=== PATIENT | female | born 1970 | race African-American/Black ===

== ENCOUNTER 2019-09-08 11:33 | Emergency (ER) | payer OTHER ==
[~2019-09-08] VITALS: Ht 165.1 cm; Wt 95.3 kg
[2019-09-08 12:09] LABS: Basophils # (auto) 0.1 uL; Basophils % (auto) 0.9 % (0.0-2.0); Eosinophils # (auto) 0.1 uL; Eosinophils % (auto) 0.5 % (0.0-7.0); Hematocrit 38.5 % (36.0-46.0); Lymphocytes # (auto) 1.6 uL; Lymphocytes % (auto) 15.7 % (10.0-50.0); Mean Corpuscular Hgb Conc. 33.8 g/dL (32.0-36.0); Mean Corpuscular Volume 94.6 fL (80.0-100.0); Monocytes # (auto) 0.4 uL; Monocytes % (auto) 4.3 % (0.0-12.0); Neutrophils % (auto) 78.6 % (37.0-80.0); Nucleated Red Blood Cells % 0.1 %; Platelet Count (auto) 294 10^3/uL (140-450); Red Blood Cells 4.07 10^6/uL (4.0-5.20); Red Cell Distribution Width 12.3 % (11.8-14.3); White Blood Cell 10.2 10^3/uL (4.4-10.8)
[2019-09-08 12:31] LABS: Albumin 3.8 g/dL (3.4-5.0); Anion Gap 6 (5-15); Blood Urea Nitrogen 10 mg/dL (7-18); Calcium 8.7 mg/dL (8.5-10.1); Carbon Dioxide 25 mmol/L (21-32); Chloride 109 mmol/L (98-107); Glucose 100 mg/dL (74-106); Potassium 3.9 mmol/L (3.5-5.1); Sodium 140 mmol/L (136-145)
[2019-09-08 12:34] LABS: INR 1.01 (0.9-1.15); Partial Thromboplastin Time 23.4 sec (23.64-32.05)
[2019-09-08 12:37] LABS: Alanine Aminotransferase 20 U/L (13-56); Alkaline Phosphatase 39 U/L (45-117); Aspartate Aminotransferase 13 U/L (15-37); BUN/Creatinine Ratio 15.6; Bilirubin, Total 0.7 mg/dL (0.2-1.0); GFR African American 126 mL/min; GFR Non-African American 104 mL/min
[2019-09-08 13:50] VITALS: BP 154/83
[2019-09-08] MEDS ORDERED: MECLIZINE HCL 25 MG TAB PO ONE (14:15)
[2019-09-08 14:39] LABS: Urine Bacteria NONE SEEN /hpf (None Seen); Urine Blood Negative /uL (Negative); Urine Specific Gravity 1.014 (1.001-1.035); Urine WBC 1 /hpf (0 - 5)
[2019-09-08 14:55] LABS: Amphetamine Screen, Urine NEGATIVE (NEGATIVE); Barbiturate Scree,Urine NEGATIVE (NEGATIVE); Benzodiazephine Screen, Urine NEGATIVE (NEGATIVE); Cannabinoid Screen, Urine NEGATIVE (NEGATIVE); Cocaine Screen, Urine NEGATIVE (NEGATIVE); Phencyclidine Screen, Urine NEGATIVE (NEGATIVE)
[2019-09-08 14:57] LABS: Alcohol, Urine < 3.0 mg/dL (0-5); Opiate Scree,Urine NEGATIVE (NEGATIVE)
== END 2019-09-08 16:33 | disposition home or self-care (01) ==
LOC: ER 11:33 → EDBD 11:33 → ER 15:16
DX: R42 Dizziness and giddiness (principal); R11.2 Nausea with vomiting, unspecified
CPT/HCPCS: 36415; 70450; 71045; 80053; 80307; 81001; 81025; 83880; 84484; 85025; 85379; 85610; 85730; 99284; J8597; 93005

== ENCOUNTER 2021-07-28 21:00 | Emergency (ER) | payer OTHER ==
[~2021-07-28] VITALS: Ht 170.2 cm; Wt 112.0 kg
[2021-07-28 21:15] VITALS: BP 175/87
== END 2021-07-29 01:04 | disposition left against medical advice (07) ==
LOC: ER 21:03
DX: R10.2 Pelvic and perineal pain (principal); Z53.21 Procedure and treatment not carried out due to patient leaving prior to being seen by health care provider

== ENCOUNTER 2025-03-13 06:25 | Inpatient (IN) | payer OTHER ==
[~2025-03-13] VITALS: Ht 170.2 cm; Wt 121.7 kg
[~2025-03-13 06:25] MED LIST: AMLO1TAB23 PO; ASPI1TAB20 PO; ATOR-507 PO
--- NOTE | 2025-03-13 06:53 | ED.PDOC ---
HPI Comments 54 y/o F, with PMHx of HTN presents to the ED for CC of chest pain. 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 Patient reports, that she was at work when chest pain came on suddenly; patient reports sitting down to try and relieve symptoms with no affect. Upon arrival to the ED, patient is tachycardiac with a HR of 180bpm. Patient transferred to ER bed 8 for further care. Chief Complaint: Chest Pain Time Seen by MD: 06:48 Primary Care Provider: EDIE Reviewed Notes: Nurses Notes, Medications, Allergies Allergies: Coded Allergies: NO KNOWN ALLERGIES (Unverified , 09/08/19) Home Meds Active Scripts Amlodipine Besylate (Amlodipine Besylate) 10 Mg Tab, 1 TAB PO DAILY, #90 TAB 1 Refill Prov:FAMILIA PETTY MD 02/27/22 Aspirin (Aspir-81) 81 Mg Tab, 1 TAB PO DAILY, #90 TAB 1 Refill Prov:FAMILIA PETTY MD 02/27/22 Atorvastatin Calcium (Lipitor) 40 Mg Tab, 1 TAB PO QPM, #90 TAB 1 Refill Prov:FAMILIA PETTY MD 02/27/22 Information Source: Patient Mode of Arrival: Ambulatory Severity: Moderate Timing: Hours Duration: Since onset Prehospital treatment: None Location: Substernal Radiation: No Radiation Onset: At Rest Cardiac Risk Factors: HTN PE Risk Factors: None History of: None Modifying Factors: Nothing Associated Signs and Symptoms: SOB Past Medical History PAST MEDICAL HISTORY: HTN Surgical History: BTL OFFICE RN History: No Pertinent OFFICE RN History Family History Family History: No family hx of Heart gera Social History Smoker: Non-Smoker Alcohol: Occasionally Drugs: Denies Drug Use Lives In: Home Constitutional: denies: chills, diaphoresis, fatigue, fever, malaise, sweats, weakness, others EENTM: denies: blurred vision, double vision, ear bleeding, ear discharge, ear drainage, ear pain, ear ringing, eye pain, eye redness, hearing loss, mouth pain, mouth swelling, nasal discharge, nose bleeding, nose congestion, nose pain, photophobia, tearing, throat pain, throat swelling, voice changes, others Respiratory: reports: shortness of breath; denies: cough, hemoptysis, orthopnea, SOB at rest, SOB with excertion, stridor, wheezing, others Cardiovascular: reports: chest pain, palpitations; denies: dizzy spells, diaph oresis, Dyspnea on exertion, edema, irregular heart beat, left arm pain, lightheadedness, PND, syncope, others Gastrointestinal: denies: abdomen distended, abdominal pain, blood streaked bowels, constipated, diarrhea, dysphagia, difficulty swallowing, hematemesis, melena, nausea, poor appetite, poor fluid intake, rectal bleeding, rectal pain, vomiting, others Genitourinary: denies: abnormal vagina bleeding, burning, dyspareunia, dysuria, flank pain, frequency, hematuria, incontinence, pain, , vagina discharge, urgency, others Neurological: reports: headache; denies: dizziness, fainting, left sided numbness, left sided weakness, numbness, paresthesia, pre-existing deficit, right sided numbness, right sided weakness, seizure, speech problems, tingling, tremors, weakness, others Musculoskeletal: denies: back pain, gout, joint pain, joint swelling, muscle pain, muscle stiffness, neck pain, others Integumetry: denies: bruises, change in color, change in hair/nails, dryness, laceration, lesions, lumps, rash, wounds, others Allergic/Immunocompromised: denies: Difficulty Healing, Frequent Infections, Hives, Itching, others Hematologic/Lymphatic: denies: anemia, blood clots, easy bleeding, easy bruising, swollen glands, others Endocrine: denies: excessive hunger, excessive sweating, excessive thirst, excessive urination, flushing, intolerance to cold, intolerance to heat, unexplained weight gain, unexplained weight loss, others Psychiatric: denies: anxiety, bipolar disorder, depression, hopeless, panic disorder, schizophrenia, sleepless, suicidal, others All Other Systems: Reviewed and Negative Physical Exam General Appearance: Moderate Distress HEENT: Normal ENT Inspection, Pharynx Normal, TMs Normal Neck: Full Range of Motion, Non-Tender, Normal, Normal Inspection Respiratory: Chest Non-Tender, Lungs Clear, No Accessory Muscle Use, No Respiratory Distress, Normal Breath Sounds Cardiovascular: Tachycardia Breast Exam: Deferred Gastrointestinal: No Organomegaly, Non Tender, No Pulsatile Mass, Normal Bowel Sounds, Soft Genitalia: Deferred Pelvic: Deferred Rectal: Deferred Extremities: No calf tenderness, Normal capillary refill, Normal inspection, Normal range of motion, Non-tender, No pedal edema Musculoskeletal : Apperance: Normal Neurologic: Alert, pipe finisher II-XII nml as Tested, No Motor Deficits, Normal Affect, Normal Mood, No Sensory Deficits Cerebellar Function: NOT DONE Reflexes: NOT DONE Skin: Dry, Normal Color, Warm Peripheral Pulses: 3+ Radial (R), 3+ Radial (L) Lymphatic: No Adenopathy EKG EKG : Pulse Rate (adult): 175 Cardiac Rhythm: PSVT Was a procedure done? Was a procedure done?: No CP Differential Dx Differential Diagnosis: A-fib, A-Flutter, Angina, Anxiety / Panic Attack, Atrial Dysrhythmia, Electrolyte Disorder, Sinus Tachycardia Differential Diagnosis: HTN Essential, HTN Accelerated X-Ray, Labs, Meds, VS Vital Signs Date Time Temp Pulse Resp B/P (MAP) Pulse Ox O2 Delivery O2 Flow Rate FiO2 03/13/25 08:00 69 03/13/25 07:30 80 03/13/25 07:14 175 03/13/25 07:06 80 16 125/92 (103) 95 03/13/25 07:06 80 16 95 Room Air* 0 21 03/13/25 07:02 86 03/13/25 06:30 97.9 179 20 141/102 (115) 98 97.9 03/13/25 06:29 175 Lab Test 03/13/25 07:55 03/13/25 06:52 Range/Units Troponin I High Sensitivity 13 6 </=34 ng/L White Blood Count 12.6 H 4.4-10.8 10^3/uL Red Blood Count 4.42 4.0-5.20 10^6/uL Hemoglobin 13.6 12.2-16.2 g/dL Hematocrit 40.6 36.0-46.0 % Mean Corpuscular Volume 91.8 80.0-100.0 fL Mean Corpuscular Hemoglobin 30.8 28.0-32.0 pg Mean Corpuscular Hemoglobin Concent 33.5 32.0-36.0 g/dL Red Cell Distribution Width 12.5 11.8-14.3 % Platelet Count 419 140-450 10^3/uL Mean Platelet Volume 8.3 6.9-10.8 fL Neutrophils (%) (Auto) 60.3 37.0-80.0 % Lymphocytes (%) (Auto) 30.4 10.0-50.0 % Monocytes (%) (Auto) 5.8 0.0-12.0 % Eosinophils (%) (Auto) 2.6 0.0-7.0 % Basophils (%) (Auto) 0.9 0.0-2.0 % Neutrophils # (Auto) 7.6 1.6-8.6 10 ^3/uL Lymphocytes # (Auto) 3.8 0.4-5.4 10 ^3/uL Monocytes # (Auto) 0.7 0-1.3 10 ^3/uL Eosinophils # (Auto) 0.3 0-0.8 10 ^3/uL Basophils # (Auto) 0.1 0-0.2 10 ^3/uL Nucleated Red Blood Cells 0.1 % Sodium Level 143 136-145 mmol/L Potassium Level 3.8 3.5-5.1 mmol/L Chloride Level 109 H 98-107 mmol/L Carbon Dioxide Level 21 20-31 mmol/L Anion Gap 13 5-15 Blood Urea Nitrogen 12 9-23 mg/dL Creatinine 0.72 0.550-1.02 mg/dL Glomerular Filtration Rate Calc 98 >90 mL/min BUN/Creatinine Ratio 16.7 10.0-20.0 Serum Glucose 123 H 74-106 mg/dL Calcium Level 10.2 8.7-10.4 mg/dL Current Medications Medications (Trade) Dose Ordered Sig/Stephen Route Start Time Stop Time Status Last Admin Adenosine (Adenosine) 6 mg ONCE ONCE IV 03/13/25 06:45 03/13/25 06:46 DC 03/13/25 07:00 [place] [id number] Ph: [phone] DIAGNOSTIC IMAGING Diagnostic Imaging Report : [id number] Signed PATIENT: JULI SANDOVAL ACCT: [id number] UNIT: [id number] : 1970 LOC: ER ROOM / BED: / AGE / SEX: 54 / F ADM STATUS: REG ER SERVICE 07 ORDERING PHYSICIAN: TRACY RIVAS MD PROCEDURE(s): CXRP - CHEST PORTABLE REASON: sob ORDER NUMBER(s): [id number], ACCESSION NUMBER(s): [id number] EXAM: XR Chest, 1 View CLINICAL INDICATION: sob TECHNIQUE: Frontal view of the chest. COMPARISON: CHEST PORTABLE on DOS: 02/25/22, CXRP on DOS: 02/25/22 FINDINGS: LUNGS AND PLEURAL SPACES: Unremarkable. No consolidation. No pneumothorax. HEART: Unremarkable. No cardiomegaly. MEDIASTINUM: Unremarkable. Normal mediastinal contour. BONES/JOINTS: Unremarkable. No acute fracture. OTHER FINDINGS: . IMPRESSION: No acute cardiopulmonary process. ATED BY: DONNA CROOK MD DICTATED DATE/TIME: 03/13/25803 SIGNED BY: DONNA CROOK MD SIGNED DATE/TIME: 03/13/25803 CC: Patient alert. Came in because of chest palpitations. EKG does show supraventricular tachycardia. Was given adenosine. Rhythm kind of radiated to sinus. Possibly will need amiodarone. New onset supraventricular tachycardia. Explained to the patient that she will be admitted for continuing monitoring of her cardiac rhythm. Cardiology consultation. Continue monitor. [facility] approved inpatient admission [id number]. Time of 1ST Reevaluation: 07:18 Reevaluation 1ST: Unchanged Patient Education/Counseling: Diagnosis, Treatment Family Education/Counseling: No Family Present Departure 1 Departure Time of Disposition: 07:13 Impression: Primary Impression: Supraventricular tachycardia Disposition: ADMITTED INPATIENT Admit to: Med Surg Condition: Guarded Critical Care Note Critical Care Time?: Yes (90 min-critical care time only) Critical care comment: Supraventricular tachycardia Stability Stability form required: No Heart Score Heart Score: Heart Score Response (Comments) Value History Slightly Suspicious 0 EKG Normal 0 Age 45-64 1 Risk Factors >3 or Hx ASHD 2 Troponin N/A 0 Total 3 I personally scribed for TRACY RIVAS MD ([email or web address]) on 03/13/25 at 06:53. Electronically submitted by Joselin Gray ([email or web address]). I personally scribed for TRACY RIVAS MD ([email or web address]) on 03/13/25 at 08:32. Electronically submitted by Joselin Gray ([email or web address]). TRACY RIVAS MD March 13, 2025 06:53
[2025-03-13] MEDS: ADENOSINE 6 MG/2 ML INJ IV ONE (07:00)
--- NOTE | 2025-03-13 07:00 | ECG ---
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
[2025-03-13 07:06] VITALS: PULSE 80; RESP 16; O2SAT 95
--- NOTE | 2025-03-13 07:10 | ECG ---
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
[2025-03-13 07:12] LABS: Basophils # (auto) 0.1 10 ^3/uL (0-0.2); Basophils % (auto) 0.9 % (0.0-2.0); Eosinophils # (auto) 0.3 10 ^3/uL (0-0.8); Eosinophils % (auto) 2.6 % (0.0-7.0); Hematocrit 40.6 % (36.0-46.0); Hemoglobin 13.6 g/dL (12.2-16.2); Lymphocytes # (auto) 3.8 10 ^3/uL (0.4-5.4); Lymphocytes % (auto) 30.4 % (10.0-50.0); Mean Corpuscular Hemoglobin 30.8 pg (28.0-32.0); Mean Corpuscular Hgb Conc. 33.5 g/dL (32.0-36.0); Mean Corpuscular Volume 91.8 fL (80.0-100.0); Monocytes # (auto) 0.7 10 ^3/uL (0-1.3); Monocytes % (auto) 5.8 % (0.0-12.0); Neutrophils # (auto) 7.6 10 ^3/uL (1.6-8.6); Neutrophils % (auto) 60.3 % (37.0-80.0); Nucleated Red Blood Cells % 0.1 %; Platelet Count (auto) 419 10^3/uL (140-450); Red Blood Cells 4.42 10^6/uL (4.0-5.20); Red Cell Distribution Width 12.5 % (11.8-14.3); White Blood Cell 12.6 10^3/uL (4.4-10.8)
[2025-03-13 07:14] LABS: Potassium 3.8 mmol/L (3.5-5.1); Sodium 143 mmol/L (136-145)
[2025-03-13 07:15] LABS: Anion Gap 13 (5-15); Calcium 10.2 mg/dL (8.7-10.4); Carbon Dioxide 21 mmol/L (20-31)
[2025-03-13 07:16] LABS: Chloride 109 mmol/L (98-107)
[2025-03-13 07:20] LABS: BUN/Creatinine Ratio 16.7 (10.0-20.0); Blood Urea Nitrogen 12 mg/dL (9-23); Glucose 123 mg/dL (74-106)
[2025-03-13 07:30] VITALS: RESP 16; O2SAT 95
--- NOTE | 2025-03-13 08:07 | DVH ---
EXAM: XR Chest, 1 View CLINICAL INDICATION: sob TECHNIQUE: Frontal view of the chest. COMPARISON: CHEST PORTABLE on DOS: 02/25/22, CXRP on DOS: 02/25/22 FINDINGS: LUNGS AND PLEURAL SPACES: Unremarkable. No consolidation. No pneumothorax. HEART: Unremarkable. No cardiomegaly. MEDIASTINUM: Unremarkable. Normal mediastinal contour. BONES/JOINTS: Unremarkable. No acute fracture. OTHER FINDINGS: . IMPRESSION: No acute cardiopulmonary process.
[2025-03-13] MEDS: AMIODARONE 360mg/200mL PREMIX 200 ML IV ONE (09:06)
[2025-03-13] MEDS: AMIODARONE BOLUS KIT 100 ML IV ONE (09:06)
[2025-03-13 09:14] LABS: Urine Bacteria None Seen /hpf (None Seen)
[2025-03-13 09:27] LABS: Urine Blood Negative /uL (Negative); Urine Clarity Clear (Clear); Urine Color Light-Yellow (Yellow); Urine Mucus FEW (None Seen); Urine Protein, UAD TRACE (Negative); Urine Specific Gravity 1.017 (1.001-1.035); Urine Squamous Epithelial Cell FEW /hpf (<5); Urine Urobilinogen Normal (Negative); Urine WBC 1 /HPF (0-5); Urine pH 6.5 (5.0-9.0)
[2025-03-13] MEDS ORDERED: HYDROcodone-ACET 5/325MG TAB PO PRN (09:45)
[2025-03-13] MEDS ORDERED: MORPHINE SULFATE INJ 2 MG/ml SYRG IV PRN ×2 (09:45)
[2025-03-13] MEDS ORDERED: DOCUSATE SOD 100 MG CAP PO PRN (09:45)
[2025-03-13] MEDS ORDERED: ACETAMINOPHEN 325 MG TAB PO PRN (09:45)
[2025-03-13] MEDS ORDERED: NITROGLYCERIN 0.4 MG SL TAB SL PRN (09:45)
[2025-03-13] MEDS ORDERED: ONDANSETRON HCL 4 MG/2 ML VIAL IV PRN (09:45)
--- NOTE | 2025-03-13 09:50 | ECG ---
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
--- NOTE | 2025-03-13 10:29 | DVHHP2 ---
History of Present Illness Reason for Visit: Chest pain History of Present Illness Ca Khan is a 54-year-old female with past medical history of hypertension, and hyperlipidemia who came to the hospital for chest pain. Patient works for [employer]. She was at work about 0500 when she began feeling chest pain and palpitations. She rested her head on her desk. She dozed off, and then woke up in a panic with the chest pain and palpitations. She then chose to drive her self to the hospital. On arrival it was noted that she was in SVT with a heart rate in the 170's. She was given a dose of adenosine and heart rate improved. On assessment heart rate is SR in the 70-80's, she has no complaints at this time. States chest pain and palpitations have improved. Patient takes Metformin at home. She states she is not diabetic and that she was started on it 1 month ago for weight lose. Cardiovascular: HTN, hyperipidemia Past Surgical History: Other (right foot) Smoke: No ALCOHOL: rare Drugs: None Lives: with Family Domestic Violence: Neg Review of Systems Constitutional: No: Fever, Chills, Sweats, Weakness, Malaise, Other Eyes: No: Pain, Vision change, Conjunctivae inflammation, Eyelid inflammation, Other, Redness ENT: No: Ear pain, Ear discharge, Nose pain, Nose discharge, Nose congestion, Mouth pain, Mouth swelling, Throat pain, Throat swelling, Other Respiratory: No: Cough, Dry, Shortness of breath, SOB with excertion, Wheezing, Hemoptysis, Pleuritic Pain, Sputum, Wheezing, Other Cardiovascular: Chest Pain, Palpitations; No: Orthopnea, Paroxysmal Noc. Dyspnea, Edema, Lt Headedness, Other Gastrointestinal: No: Nausea, Vomiting, Abdominal Pain, Diarrhea, Constipation, Melena, Hematochezia, Other Genitourinary: No Dysuria, No Frequency, No Incontinence, No Hematuria, No Retention, No Other Musculoskeletal: No: other, neck pain, shoulder pain, arm pain, back pain, hand pain, leg pain, foot pain Skin: No: Rash, Lesions, Jaundice, Bruising, Other Neurological: No: Weakness, Numbness, Incoordination, Change in speech, Confusion, Seizures, Other Allergies: Coded Allergies: NO KNOWN ALLERGIES (Unverified , 09/08/19) Medications Current Medications Medications Dose Ordered Sig/Stephen Route Start Time Stop Time Status Last Admin Dose Admin Acetaminophen/ Hydrocodone Bitart 1 tab Q4HP PRN PO 03/13/25 09:45 Ondansetron HCl 4 mg Q4HP PRN IV 03/13/25 09:45 Docusate Sodium 100 mg BIDPRN PRN PO 03/13/25 09:45 Acetaminophen 650 mg Q6HP PRN PO 03/13/25 09:45 Morphine Sulfate 2 mg Q4HPRN PRN IV 03/13/25 09:45 Nitroglycerin 0.4 mg Q5MINP PRN SL 03/13/25 09:45 Morphine Sulfate 2 mg Q30M PRN IV 03/13/25 09:45 Exam Vital Signs Vital Signs Date Time Temp Pulse Resp B/P (MAP) Pulse Ox O2 Delivery O2 Flow Rate FiO2 03/13/25 09:48 79 03/13/25 09:32 Room Air* 0 21 03/13/25 07:30 16 95 03/13/25 07:06 125/92 (103) 03/13/25 06:30 97.9 97.9 General Appearance: Alert, Oriented X3, Cooperative HEENT: Atraumatic, PERRLA Respiratory: Clear to auscultation, Normal air movement Cardiovascular: Regular rate, Normal S1, Normal S2, No murmurs Abdominal: Normal bowel sounds, Soft, No tenderness Extremities: No clubbing, No cyanosis, No edema, Normal pulses, No tenderness/swelling Skin: No rashes, No breakdown, No significant lesion Neuro: Normal gait, Normal speech, Strength at 5/5 X4 ext, Normal tone Psych/Mental Status: Mental status NL, Mood NL Labs/Xrays Labs Test 03/13/25 07:55 03/13/25 06:52 03/13/25 06:42 Range/Units Troponin I High Sensitivity 13 </=34 ng/L White Blood Count 12.6 H 4.4-10.8 10^3/uL Red Blood Count 4.42 4.0-5.20 10^6/uL Hemoglobin 13.6 12.2-16.2 g/dL Hematocrit 40.6 36.0-46.0 % Mean Corpuscular Volume 91.8 80.0-100.0 fL Mean Corpuscular Hemoglobin 30.8 28.0-32.0 pg Mean Corpuscular Hemoglobin Concent 33.5 32.0-36.0 g/dL Red Cell Distribution Width 12.5 11.8-14.3 % Platelet Count 419 140-450 10^3/uL Mean Platelet Volume 8.3 6.9-10.8 fL Neutrophils (%) (Auto) 60.3 37.0-80.0 % Lymphocytes (%) (Auto) 30.4 10.0-50.0 % Monocytes (%) (Auto) 5.8 0.0-12.0 % Eosinophils (%) (Auto) 2.6 0.0-7.0 % Basophils (%) (Auto) 0.9 0.0-2.0 % Neutrophils # (Auto) 7.6 1.6-8.6 10 ^3/uL Lymphocytes # (Auto) 3.8 0.4-5.4 10 ^3/uL Monocytes # (Auto) 0.7 0-1.3 10 ^3/uL Eosinophils # (Auto) 0.3 0-0.8 10 ^3/uL Basophils # (Auto) 0.1 0-0.2 10 ^3/uL Nucleated Red Blood Cells 0.1 % Sodium Level 143 136-145 mmol/L Potassium Level 3.8 3.5-5.1 mmol/L Chloride Level 109 H 98-107 mmol/L Carbon Dioxide Level 21 20-31 mmol/L Anion Gap 13 5-15 Blood Urea Nitrogen 12 9-23 mg/dL Creatinine 0.72 0.550-1.02 mg/dL Glomerular Filtration Rate Calc 98 >90 mL/min BUN/Creatinine Ratio 16.7 10.0-20.0 Serum Glucose 123 H 74-106 mg/dL Calcium Level 10.2 8.7-10.4 mg/dL Urine Color Light-yellow Yellow Urine Clarity Clear Clear Urine pH 6.5 5.0-9.0 Urine Specific [place] 1.017 1.001-1.035 Urine Protein Trace H Negative Urine Ketones Negative Negative Urine Blood Negative Negative /uL Urine Nitrite Negative Negative Urine Bilirubin Negative Negative Urine Urobilinogen Normal Negative mg/dL Urine Leukocyte Esterase Negative Negative /uL Urine RBC 1 0 - 4 /hpf Urine Microscopic WBC 1 0-5 /HPF Urine Squamous Epithelial Cells Few <5 /hpf Urine Bacteria None seen None Seen /hpf Urine Mucus Few None Seen Urine Glucose Normal Normal mg/dL EXAM: XR Chest, 1 View FINDINGS: LUNGS AND PLEURAL SPACES: Unremarkable. No consolidation. No pneumothorax. HEART: Unremarkable. No cardiomegaly. MEDIASTINUM: Unremarkable. Normal mediastinal contour. BONES/JOINTS: Unremarkable. No acute fracture. OTHER FINDINGS: . IMPRESSION: No acute cardiopulmonary process. Assessment/Plan Assessment/Plan Assessment: Supraventricular tachycardia, Hyperglycemia, Hypertension, Hyperlipidemia, Plan: Admit to Tele, Cardiology consult, ECHO, Start low dose beta piedad, TSH, A1c, Lipid panel, Home medications reconciled, Plan discussed with: Patient My Orders Orders - FOSTER HOLLY Procedure Category Date Status Time Admit ADMIT 03/13/25 Transmitted 09:36 Code Status CODE 03/13/25 Transmitted 09:36 2 Gm Sodium Diet DIET 03/13/25 Transmitted Lunch Hydrocodone-Acet PHA 03/13/25 In Process 5325mg Tab ([place] 09:45 Ondansetron Hcl PHA 03/13/25 In Process (Zofran) 09:45 Docusate Sodium PHA 03/13/25 In Process Capsule ([place]ace 09:45 Complete Blood Count LAB 03/14/25 Verified 04:00 Comprehensive LAB 03/14/25 Verified Metabolic Panel 04:00 Condition: Serious CRISTAL 03/13/25 In Process 09:36 Acetaminophen Tablet PHA 03/13/25 In Process (Tylenol Tablet) 09:45 Morphine Sulfate PHA 03/13/25 In Process Injection 09:45 Nitroglycerin PHA 03/13/25 In Process Sublingual (Ntrostat 09:45 Morphine Sulfate PHA 03/13/25 In Process Injection 09:45 Stat Ekg For Chest CRISTAL 03/13/25 In Process Pain 09:36 Notify Of Changes CRISTAL 03/13/25 In Process From Base 09:36 Speech Writer For CRISTAL 03/13/25 In Process 24 Hours 09:36 Emergency Dysrhythmia CRISTAL 03/13/25 In Process Protocol 09:36 Rhythm Strips Once CRISTAL 03/13/25 In Process Every Shift 09:36 Oxygen By Nasal RT 03/13/25 Transmitted Cannula 09:36 * Cardiology Consult CONS 03/13/25 Transmitted 09:54 Date of Service: March 13, 2025 Billing Provider: FOSTER HOLLY Common Visit Codes: [id number] INP/OBS CARE (MOD) FOSTER HOLLY March 13, 2025 10:29
[2025-03-13] MEDS: METOPROLOL TARTRATE 25 MG TAB PO ONE (10:50)
[2025-03-13 15:22] LABS: Triglycerides 103 mg/dL (< 150)
[2025-03-13 15:24] LABS: HDL Cholesterol 54 mg/dL (40-59)
[2025-03-13 15:26] LABS: Cholesterol 203 mg/dL (< 200); LDL Cholesterol 135 mg/dL (< 100)
--- NOTE | 2025-03-13 16:29 | DVHINCON2 ---
BAIRON MARTINEZ [facility] 03/13/25 1629: Date Seen: March 13, 2025 Referring Physician LIV Villagran Reason for Consultation SVT History of Present Illness This is a pleasant 54-year-old female who presented to the emergency room with a chief complaint of palpitations. Patient complains of cardiac palpitations associated with diaphoresis and bilateral neck pulsation 1.5 hours prompting her to seek further medical attention. Upon arrival to the emergency room she was found in a supraventricular tachycardia rhythm with a heart rate at 175 bpm for which she was medicated with the adenosine 6 mg IV x1 with successful transition into a normal sinus rhythm. Serial troponin levels are negative. The patient reports recent alcohol intake including three white claw seltzers this past Wednesday. Denies the use of coffee, caffeinated drinks, or energy drinks. States she is currently on Ozempic therapy and has lost 10 lb in the past six weeks. She also reports an event of palpitations last week lasting for approximately 1 hr. She did not attend a medical center at that time. Significant medical history includes hypertension, dyslipidemia, and morbid obesity. Past Medical History Past medical history reviewed. No other significant than mentioned above. Past Surgical History Right foot Family History: FH: chronic obstructive pulmonary disease G8 FATHER FH: myocardial infarction G8 MOTHER FH: stroke G8 MOTHER Family History Family history reviewed. Significant for cardiovascular disease. Mother from massive [place] at 53 y.o. Sister from massive [place] at 50 y.o. Maternal aunts from massive MIs at 45 y.o. and 52 y.o. Social History Denies the use of illicit drugs or tobacco use. Admits to occasional alcohol use. Allergies: Coded Allergies: NO KNOWN ALLERGIES (Unverified , 09/08/19) Home Meds Active Scripts Amlodipine Besylate (Amlodipine Besylate) 10 Mg Tab, 1 TAB PO DAILY, #90 TAB 1 Refill Prov:FAMILIA PETTY MD 02/27/22 Aspirin (Aspir-81) 81 Mg Tab, 1 TAB PO DAILY, #90 TAB 1 Refill Prov:FAMILIA PETTY MD 02/27/22 Atorvastatin Calcium (Lipitor) 40 Mg Tab, 1 TAB PO QPM, #90 TAB 1 Refill Prov:FAMILIA PETTY MD 02/27/22 Home Meds Home medications reviewed. Current Medications Current Medications Medications (Trade) Dose Ordered Sig/Stephen Route PRN Reason Start Time Stop Time Status Last Admin Acetaminophen/ Hydrocodone Bitart ([place] 5/325MG Tab) 1 tab Q4HP PRN PO MODERATE PAIN (4-6 PAIN SCALE) 03/13/25 09:45 Ondansetron HCl (Zofran) 4 mg Q4HP PRN IV NAUSEA / VOMITING 03/13/25 09:45 Docusate Sodium (Colace Capsule) 100 mg BIDPRN PRN PO FOR CONSTIPATION 03/13/25 09:45 Acetaminophen (Tylenol Tablet) 650 mg Q6HP PRN PO PAIN SCALE 1-3 OR TEMP>100.4 03/13/25 09:45 Morphine Sulfate 2 mg Q4HPRN PRN IV SEVERE PAIN (7-10 PAIN SCALE) 03/13/25 09:45 Nitroglycerin (Ntrostat Sublingual) 0.4 mg Q5MINP PRN SL FOR CHEST PAIN 03/13/25 09:45 Morphine Sulfate 2 mg Q30M PRN IV FOR CHEST PAIN 03/13/25 09:45 Metoprolol Tartrate (Lopressor Tablet) 12.5 mg BID PO 03/13/25 22:00 Review of Systems Constitutional: No symptom reported Ears, Nose, & Throat: No symptom reported Eyes: No symptom reported Neurological: No symptoms reported Pulmonary/Respiratory: No symptom reported Cardiovascular: Palpitations, diaphoresis, bilateral neck pulsation Gastrointestinal: No symptom reported Genitourinary: No symptom reported Musculoskeletal: No symptom reported Skin: No symptom reported Psychiatric: No symptom reported Endocrine: No symptom reported Hemotologic/Lymphatic: No symptom reported Vital Signs Vital Signs Date Time Temp Pulse Resp B/P (MAP) Pulse Ox O2 Delivery O2 Flow Rate FiO2 03/13/25 14:22 63 150/65 03/13/25 14:00 12 95 03/13/25 09:32 Room Air* 0 21 03/13/25 08:00 98.1 98.1 Physical Exam General Appearance: Cooperative. Well developed. Morbidly obese. In no acute distress Head Exam: Normal inspection Neck Exam: Normal inspection. Non-tender. Normal alignment Pulmonary/Respiratory: Chest non-tender. Clear bilateral breath sounds Cardiovascular/Chest: Regular rate and rhythm. S1, S2. NSR. No murmurs. No JVD. Peripheral Pulses: 2+ Radial (R). 2+ Radial (L). 2+ Pedal (R). 2+ Pedal (L) Abdominal Exam: Normal bowel sounds. Soft. Nontender. No hepatospenomegaly. No masses Ankle Exam: Negative ankle edema Lower extremities: Negative lower extremity edema Neuro/Mental Status: A&O x4. Coherent Thoughts/Psych: Normal thought pattern. Appropriate mood and affect. Good judgement and insight Appearance: In no acute distress Skin Exam: Normal inspection. Normal color. Warm. Dry Labs/Diagnostic Data Labs Test 03/13/25 09:52 03/13/25 06:52 03/13/25 06:42 Range/Units Troponin I High Sensitivity 33 </=34 ng/L White Blood Count 12.6 H 4.4-10.8 10^3/uL Red Blood Count 4.42 4.0-5.20 10^6/uL Hemoglobin 13.6 12.2-16.2 g/dL Hematocrit 40.6 36.0-46.0 % Mean Corpuscular Volume 91.8 80.0-100.0 fL Mean Corpuscular Hemoglobin 30.8 28.0-32.0 pg Mean Corpuscular Hemoglobin Concent 33.5 32.0-36.0 g/dL Red Cell Distribution Width 12.5 11.8-14.3 % Platelet Count 419 140-450 10^3/uL Mean Platelet Volume 8.3 6.9-10.8 fL Neutrophils (%) (Auto) 60.3 37.0-80.0 % Lymphocytes (%) (Auto) 30.4 10.0-50.0 % Monocytes (%) (Auto) 5.8 0.0-12.0 % Eosinophils (%) (Auto) 2.6 0.0-7.0 % Basophils (%) (Auto) 0.9 0.0-2.0 % Neutrophils # (Auto) 7.6 1.6-8.6 10 ^3/uL Lymphocytes # (Auto) 3.8 0.4-5.4 10 ^3/uL Monocytes # (Auto) 0.7 0-1.3 10 ^3/uL Eosinophils # (Auto) 0.3 0-0.8 10 ^3/uL Basophils # (Auto) 0.1 0-0.2 10 ^3/uL Nucleated Red Blood Cells 0.1 % Sodium Level 143 136-145 mmol/L Potassium Level 3.8 3.5-5.1 mmol/L Chloride Level 109 H 98-107 mmol/L Carbon Dioxide Level 21 20-31 mmol/L Anion Gap 13 5-15 Blood Urea Nitrogen 12 9-23 mg/dL Creatinine 0.72 0.550-1.02 mg/dL Glomerular Filtration Rate Calc 98 >90 mL/min BUN/Creatinine Ratio 16.7 10.0-20.0 Serum Glucose 123 H 74-106 mg/dL Hemoglobin A1c 4.8 <5.7 % A1C Calcium Level 10.2 8.7-10.4 mg/dL Triglycerides Level 103 < 150 mg/dL Cholesterol Level 203 H < 200 mg/dL LDL Cholesterol 135 H < 100 mg/dL HDL Cholesterol 54 40-59 mg/dL Thyroid Stimulating Hormone (TSH) 1.10 0.55-4.78 uIU/mL Urine Color Light-yellow Yellow Urine Clarity Clear Clear Urine pH 6.5 5.0-9.0 Urine Specific [place] 1.017 1.001-1.035 Urine Protein Trace H Negative Urine Ketones Negative Negative Urine Blood Negative Negative /uL Urine Nitrite Negative Negative Urine Bilirubin Negative Negative Urine Urobilinogen Normal Negative mg/dL Urine Leukocyte Esterase Negative Negative /uL Urine RBC 1 0 - 4 /hpf Urine Microscopic WBC 1 0-5 /HPF Urine Squamous Epithelial Cells Few <5 /hpf Urine Bacteria None seen None Seen /hpf Urine Mucus Few None Seen Urine Glucose Normal Normal mg/dL Assessment Supraventricular tachycardia, now NSR Rule out structural heart disease Hypertension Dyslipidemia Morbid obesity Plan/Recommendation (Dr. Melendez) The patient with supraventricular tachycardia was successfully chemically cardioverted after one round of adenosine IV. We will initiate metoprolol XL and obtain a transthoracic echocardiogram to rule out structural heart disease. TSH level within normal limits. Magnesium level and blood alcohol pending at this time. Monitor ECG changes closely and notify. Outpatient event monitor. Further orders per clinical course. Thank you for allowing us to participate in this patient's care. Please call if you have any questions or concerns. This medical document was created using an electronic medical record system with voice recognition software and computerized dictation system. Although this document has been carefully reviewed, there might still be some phonetic and typographical errors. Occasional wrong-word or ``sound-alike substitutions may have occurred due to the inherent limitations of voice recognition software. These areas are purely typographical due to imperfections of the software programs and do not reflect any compromise in the patient's medical care. Please read the chart carefully and recognize, using context, where these substitutions have occurred. Plan discussed with: Patient, Other NYHA Physical activity limitations: NA Date of Service: March 13, 2025 Billing Provider: BAIRON MARTINEZ Cardiology Common Codes: [id number] INP/OBS CARE (High) ESHA MELENDEZ MD 03/13/25 1745: Family History: FH: chronic obstructive pulmonary disease G8 FATHER FH: myocardial infarction G8 MOTHER FH: stroke G8 MOTHER Allergies: Coded Allergies: NO KNOWN ALLERGIES (Unverified , 09/08/19) Home Meds Active Scripts Amlodipine Besylate (Amlodipine Besylate) 10 Mg Tab, 1 TAB PO DAILY, #90 TAB 1 Refill Prov:FAMILIA PETTY MD 02/27/22 Aspirin (Aspir-81) 81 Mg Tab, 1 TAB PO DAILY, #90 TAB 1 Refill Prov:FAMILIA PETTY MD 02/27/22 Atorvastatin Calcium (Lipitor) 40 Mg Tab, 1 TAB PO QPM, #90 TAB 1 Refill Prov:FAMILIA PETTY MD 02/27/22 Plan/Recommendation SVT explained to patient at bedside. She prefers to trial vagal maneuvers and PRN beta blockers. She has a watch and will monitor her HR. Avoid excessive alcohol. If echo normal can follow up as outpatient for further monitoring and management. Discharge with prescription for Metoprolol T 25mg PRN for sustained HR >130 BAIRON MARTINEZ March 13, 2025 16:29 ESHA MELENDEZ MD March 13, 2025 17:45
[2025-03-13] MEDS ORDERED: hydrALAZINE HCL 20 MG/ML VL IV PRN (16:45)
[2025-03-13 17:22] VITALS: PULSE 59; RESP 17; O2SAT 95
[2025-03-13] MEDS: ASPirin 81 mg TAB PO ONE (18:13)
[2025-03-13] MEDS: METOPROLOL SUCCINATE XL 50 MG TAB PO ONE (18:15)
[2025-03-13] MEDS: ENOXAPARIN SOD 40 MG/0.4 ML SYRINGE SC ONE (18:17)
[2025-03-13] MEDS ORDERED: METOPROLOL TARTRATE 25 MG TAB PO SCH (22:00)
[2025-03-13 22:25] VITALS: BP 136/74; PULSE 62; RESP 17; TEMP 98.2; O2SAT 92
[2025-03-13] MEDS ORDERED: ATOR40TA52 PO (22:37)
[2025-03-13] MEDS ORDERED: SEMA2INJ3 (22:37)
[2025-03-13] MEDS ORDERED: METH-1181 PO (22:37)
[2025-03-13] MEDS ORDERED: AMLO1TAB22 PO (22:37)
[2025-03-13] MEDS ORDERED: ASPI-325 PO (22:37)
[2025-03-13] MEDS: ATORVASTATIN 20 MG TAB PO SCH (22:50)
[2025-03-14] VITALS (8 sets, daily range): BP systolic 120–147; BP diastolic 67–87; PULSE 51–65; RESP 15–18; TEMP 98–98.7; O2SAT 94–97
[2025-03-14 07:14] LABS: Basophils # (auto) 0 10 ^3/uL (0-0.2); Basophils % (auto) 0.3 % (0.0-2.0); Eosinophils # (auto) 0.2 10 ^3/uL (0-0.8); Eosinophils % (auto) 2.8 % (0.0-7.0); Hematocrit 38.5 % (36.0-46.0); Hemoglobin 12.9 g/dL (12.2-16.2); Lymphocytes # (auto) 2.6 10 ^3/uL (0.4-5.4); Lymphocytes % (auto) 33.8 % (10.0-50.0); Mean Corpuscular Hemoglobin 31.8 pg (28.0-32.0); Mean Corpuscular Hgb Conc. 33.6 g/dL (32.0-36.0); Mean Corpuscular Volume 94.7 fL (80.0-100.0); Monocytes # (auto) 0.5 10 ^3/uL (0-1.3); Monocytes % (auto) 6.8 % (0.0-12.0); Neutrophils # (auto) 4.3 10 ^3/uL (1.6-8.6); Neutrophils % (auto) 56.3 % (37.0-80.0); Platelet Count (auto) 297 10^3/uL (140-450); Red Blood Cells 4.06 10^6/uL (4.0-5.20); Red Cell Distribution Width 12.7 % (11.8-14.3); White Blood Cell 7.6 10^3/uL (4.4-10.8)
[2025-03-14 07:26] LABS: Alanine Aminotransferase 14 U/L (7-40); Albumin 3.8 g/dL (3.2-4.8); Alkaline Phosphatase 54 U/L (46-116); Anion Gap 7 (5-15); Aspartate Aminotransferase 14 U/L (13-40); BUN/Creatinine Ratio 10.3 (10.0-20.0); Bilirubin, Total 0.9 mg/dL (0.2-1.0); Calcium 9.3 mg/dL (8.7-10.4); Carbon Dioxide 22 mmol/L (20-31); Glucose 89 mg/dL (74-106); Potassium 3.9 mmol/L (3.5-5.1); Sodium 142 mmol/L (136-145); Total Protein 6.6 g/dL (5.7-8.2)
[2025-03-14 07:29] LABS: Blood Urea Nitrogen 6 mg/dL (9-23); Chloride 113 mmol/L (98-107)
[2025-03-14] MEDS: ASPirin 81 mg TAB PO SCH (09:04)
[2025-03-14] MEDS: ENOXAPARIN SOD 40 MG/0.4 ML SYRINGE SC SCH (09:05)
[2025-03-14] MEDS: PANTOPRAZOLE 40 MG/10 ML VIAL INJ IV SCH (09:30)
--- NOTE | 2025-03-14 09:59 | DVHPN2 ---
Consult Progress Note Date Seen: March 14, 2025 Subjective Review of Systems: CVS:Normal, RESPIRATORY:Normal, GI:Abnormal, NEURO:Normal Other Systems: C/o epigastric pain Objective vital signs Vital Sign Date Time Temp Pulse Resp B/P (MAP) Pulse Ox O2 Delivery O2 Flow Rate FiO2 03/14/25 05:00 98.0 60 17 127/76 (93) 97 98.0 03/13/25 22:21 Room Air* 0 21 Total Intake and Output 03/13/25 03/13/25 03/14/25 15:00 23:00 07:00 Intake Total 240 ml Balance 240 ml medications Current Medications Medications Dose Ordered Sig/Stephen Route Start Time Stop Time Status Last Admin Dose Admin Acetaminophen/ Hydrocodone Bitart 1 tab Q4HP PRN PO 03/13/25 09:45 Ondansetron HCl 4 mg Q4HP PRN IV 03/13/25 09:45 Docusate Sodium 100 mg BIDPRN PRN PO 03/13/25 09:45 Acetaminophen 650 mg Q6HP PRN PO 03/13/25 09:45 Morphine Sulfate 2 mg Q4HPRN PRN IV 03/13/25 09:45 Nitroglycerin 0.4 mg Q5MINP PRN SL 03/13/25 09:45 Morphine Sulfate 2 mg Q30M PRN IV 03/13/25 09:45 Hydralazine HCl 10 mg Q6HP PRN IV 03/13/25 16:45 Aspirin 81 mg DAILY PO 03/14/25 10:00 03/14/25 09:04 81 MG Enoxaparin Sodium 40 mg DAILY SC 03/14/25 10:00 03/14/25 09:05 40 MG Atorvastatin Calcium 40 mg HS PO 03/13/25 22:00 03/13/25 22:50 40 MG Examination: GENERAL:Normal, LUNGS:Normal, CVS:Normal (NSR. press writer reviewed: no further tachyarrhythmias), NEURO:Normal laboratory and microbiology Laboratory Tests 03/14/25 06:19 Test 03/14/25 06:19 Range/Units Serum Glucose 89 74-106 mg/dL Problem List/Assessment/Plan Problem List/Assessment/Plan Supraventricular tachycardia, now NSR Rule out structural heart disease Hypertension Dyslipidemia Morbid obesity Plan/Recommendation (Dr. Bailey) The patient with supraventricular tachycardia was successfully chemically cardioverted after one round of adenosine IV. Continue metoprolol XL with parameters and obtain a transthoracic echocardiogram to rule out structural heart disease. She has been instructed on vasovagal maneuvers. TSH, K, and Mg levels within normal limits. Complains of epigastric pain, scheduled for a cardiolite stress test at first availability. Presents with a Heart Score of 5 placing the patient at a moderate risk for major cardiac events in addition to significant family history for CV disease including mother, maternal aunts x 2, and sister all from massive MIs. Continue single-antiplatelet therapy and lipid-lowering agent. Initiate PPI. Monitor ECG changes closely and notify. Follow-up with [facility] for an outpatient event monitor. Further orders per clinical course. Thank you for allowing us to participate in this patient's care. Please call if you have any questions or concerns. This medical document was created using an electronic medical record system with voice recognition software and computerized dictation system. Although this document has been carefully reviewed, there might still be some phonetic and typographical errors. Occasional wrong-word or ``sound-alike substitutions may have occurred due to the inherent limitations of voice recognition software. These areas are purely typographical due to imperfections of the software programs and do not reflect any compromise in the patient's medical care. Please read the chart carefully and recognize, using context, where these substitutions have occurred. Plan discussed with: Patient, Other Date of Service: March 14, 2025 Billing Provider: BAIRON MARTINEZ Cardiology Common Codes: [id number] HOSP CARE(High BAIRON MARTINEZ March 14, 2025 09:59
[2025-03-14] MEDS ORDERED: METOPROLOL SUCCINATE XL 50 MG TAB PO SCH ×2 (10:00)
[2025-03-14 10:36] LABS: Hepatitis B Surface Antigen Negative (Negative)
[2025-03-14 10:56] LABS: Hepatitis C Antibody Negative (Negative)
[2025-03-14] MEDS: METOPROLOL SUCCINATE XL 50 MG TAB PO SCH (11:00)
--- NOTE | 2025-03-14 11:58 | DVHPN2 ---
Progress Note Date Seen: March 14, 2025 Medical Necessity Reason Pt with a Central, PICC or Fol: No Subjective Patient reports: No new complaints Review of Systems: HEENT:Normal, CVS:Normal, RESPIRATORY:Normal, GI:Normal, :Normal, MSK:Normal, NEURO:Normal Objective vital signs Vital Sign Date Time Temp Pulse Resp B/P (MAP) Pulse Ox O2 Delivery O2 Flow Rate FiO2 03/14/25 05:00 98.0 60 17 127/76 (93) 97 98.0 03/13/25 22:21 Room Air* 0 21 Total Intake and Output 03/13/25 03/13/25 03/14/25 15:00 23:00 07:00 Intake Total 240 ml Balance 240 ml medications Current Medications Medications Dose Ordered Sig/Stephen Route Start Time Stop Time Status Last Admin Dose Admin Acetaminophen/ Hydrocodone Bitart 1 tab Q4HP PRN PO 03/13/25 09:45 Ondansetron HCl 4 mg Q4HP PRN IV 03/13/25 09:45 Docusate Sodium 100 mg BIDPRN PRN PO 03/13/25 09:45 Acetaminophen 650 mg Q6HP PRN PO 03/13/25 09:45 Morphine Sulfate 2 mg Q4HPRN PRN IV 03/13/25 09:45 Nitroglycerin 0.4 mg Q5MINP PRN SL 03/13/25 09:45 Morphine Sulfate 2 mg Q30M PRN IV 03/13/25 09:45 Hydralazine HCl 10 mg Q6HP PRN IV 03/13/25 16:45 Aspirin 81 mg DAILY PO 03/14/25 10:00 03/14/25 09:04 81 MG Atorvastatin Calcium 40 mg HS PO 03/13/25 22:00 03/13/25 22:50 40 MG Metoprolol Succinate 25 mg DAILY PO 03/14/25 10:00 Pantoprazole Sodium 40 mg DAILY IV 03/14/25 10:00 Examination: GENERAL:Normal, HEENT:Normal, NECK:Normal, LUNGS:Normal, CVS:Normal, ABDOMEN:Normal, MSK:Normal, SKIN:Normal, NEURO:Normal, :Normal laboratory and microbiology Laboratory Tests 03/14/25 06:19 Test 03/14/25 06:19 Range/Units Serum Glucose 89 74-106 mg/dL Problem List/Assessment/Plan Problem List/Assessment/Plan #1 SVT: cont lopressor, echo #2 ?cad: strong family history, stress test #3 htn #4 hyperlipidemia #5 morbid obesity unstable for transfer Plan discussed with: Patient Date of Service: March 14, 2025 Billing Provider: ISAK ZAMBRANO MD Common Visit Codes: [id number] INP/OBS CARE(HIGH) ISAK ZAMBRANO MD March 14, 2025 11:58
[2025-03-15] VITALS (7 sets, daily range): BP systolic 126–144; BP diastolic 63–77; PULSE 55–70; RESP 17–18; TEMP 36.9; O2SAT 94–99
[2025-03-15] MEDS: LORazepam 2MG/ML-1ML VIAL IV ONE (08:35)
[2025-03-15] MEDS: REGADENOSON 0.4 MG/5 ML SYRG IV ONE ×2 (09:10→09:25)
--- NOTE | 2025-03-15 11:03 | DVHDS2 ---
Discharge Summary Date of Admission March 13, 2025 at 09:36 Date of Discharge: March 15, 2025 Labs/Diagnostic Data: Laboratory Results Test 03/14/25 06:19 03/13/25 09:52 03/13/25 06:52 03/13/25 06:42 White Blood Count 7.6 10^3/uL (4.4-10.8) Red Blood Count 4.06 10^6/uL (4.0-5.20) Hemoglobin 12.9 g/dL (12.2-16.2) Hematocrit 38.5 % (36.0-46.0) Mean Corpuscular Volume 94.7 fL (80.0-100.0) Mean Corpuscular Hemoglobin 31.8 pg (28.0-32.0) Mean Corpuscular Hemoglobin Concent 33.6 g/dL (32.0-36.0) Red Cell Distribution Width 12.7 % (11.8-14.3) Platelet Count 297 10^3/uL (140-450) Mean Platelet Volume 8.3 fL (6.9-10.8) Neutrophils (%) (Auto) 56.3 % (37.0-80.0) Lymphocytes (%) (Auto) 33.8 % (10.0-50.0) Monocytes (%) (Auto) 6.8 % (0.0-12.0) Eosinophils (%) (Auto) 2.8 % (0.0-7.0) Basophils (%) (Auto) 0.3 % (0.0-2.0) Neutrophils # (Auto) 4.3 10 ^3/uL (1.6-8.6) Lymphocytes # (Auto) 2.6 10 ^3/uL (0.4-5.4) Monocytes # (Auto) 0.5 10 ^3/uL (0-1.3) Eosinophils # (Auto) 0.2 10 ^3/uL (0-0.8) Basophils # (Auto) 0 10 ^3/uL (0-0.2) Nucleated Red Blood Cells 0.0 % Sodium Level 142 mmol/L (136-145) Potassium Level 3.9 mmol/L (3.5-5.1) Chloride Level 113 mmol/L (98-107) Carbon Dioxide Level 22 mmol/L (20-31) Anion Gap 7 (5-15) Blood Urea Nitrogen 6 mg/dL (9-23) Creatinine 0.58 mg/dL (0.550-1.02) Glomerular Filtration Rate Calc 106 mL/min (>90) BUN/Creatinine Ratio 10.3 (10.0-20.0) Serum Glucose 89 mg/dL (74-106) Calcium Level 9.3 mg/dL (8.7-10.4) Total Bilirubin 0.9 mg/dL (0.2-1.0) Aspartate Amino Transferase (AST) 14 U/L (13-40) Alanine Aminotransferase (ALT) 14 U/L (7-40) Alkaline Phosphatase 54 U/L (46-116) Total Protein 6.6 g/dL (5.7-8.2) Albumin 3.8 g/dL (3.2-4.8) Troponin I High Sensitivity 33 ng/L (</=34) Hemoglobin A1c 4.8 % A1C (<5.7) Magnesium Level 2.1 mg/dL (1.6-2.6) B-Type Natriuretic Peptide 67.04 pg/mL (0-100) Triglycerides Level 103 mg/dL (< 150) Cholesterol Level 203 mg/dL (< 200) LDL Cholesterol 135 mg/dL (< 100) HDL Cholesterol 54 mg/dL (40-59) Thyroid Stimulating Hormone (TSH) 1.10 uIU/mL (0.55-4.78) Plasma/Serum Blood Alcohol 3.3 mg/dL (<10) Hepatitis B Surface Antigen Negative (Negative) Hepatitis C Antibody Negative (Negative) Urine Color Light-yellow (Yellow) Urine Clarity Clear (Clear) Urine pH 6.5 (5.0-9.0) Urine Specific [place] 1.017 (1.001-1.035) Urine Protein Trace (Negative) Urine Ketones Negative (Negative) Urine Blood Negative /uL (Negative) Urine Nitrite Negative (Negative) Urine Bilirubin Negative (Negative) Urine Urobilinogen Normal mg/dL (Negative) Urine Leukocyte Esterase Negative /uL (Negative) Urine RBC 1 /hpf (0 - 4) Urine Microscopic WBC 1 /HPF (0-5) Urine Squamous Epithelial Cells Few /hpf (<5) Urine Bacteria None seen /hpf (None Seen) Urine Mucus Few (None Seen) Urine Glucose Normal mg/dL (Normal) Other Laboratory Tests 03/14/25 06:19 Brief Hx & Hospital Course: see dictated note Condition at Discharge: Good Final Diagnosis/Problems List svt Discharge Disposition: Home Discharge Instruct/Medications Diet: Cardiac 2g Na,low cholest Activity: No Restrictions, As Tolerated Follow Up/Referral: fu with pcp/cardiology Medications: resume home meds except amlodipine script to pharmacy dc home if cleared by cardiology/stress test results Discharge Statement: "Patient was advised to return to the ER or call 911 if any headaches, dizziness, shortness of breath, chest pain, abdominal pain, bleeding, fevers, or worsening of medical condition. Patient was counseled about treatment plan, medications, possible side effects, patientverbalized understanding. All questions were answered to the best of my ability. This discharge took greater then 30 minutes in planning, reviewing documentation, counseling the patient, and discussing with other team members." ASSESSMENT ASSESSMENT Assessment svt Date of Service: March 15, 2025 Billing Provider: ISAK ZAMBRANO MD Common Visit Codes: [id number]/[id number] DISCH DAY >30min ISAK ZAMBRANO MD March 15, 2025 11:03
[2025-03-15] MEDS ORDERED: METO25TA36 PO (11:04)
--- NOTE | 2025-03-15 11:36 | DVHSR ---
APPROVED REPORT Exam: Nuclear Stress Test BMI: 0 Stress Test Details HR Max Heart Rate (APMHR): 164.601876 bpm Target HR (85% APMHR): 139.247881 bpm BP ECG Stress ECG Conclusion lvef 59% normal perfusion scan NM EXAM: Myocardial Perfusion REST/STRESS Imaging Protocol: Rest Tc-99m/Stress Tc-99m 1 day Resting Data Rest SPECT myocardial perfusion imaging was performed in supine position 60 minutes following the int ravenous injection of 10.5 mCi of Tc-99m Sestamibi. Time of rest injection: 08:01 Date: 03/15/2025 Time of rest imagin:01 Date: 03/15/2025 Administration Route: IV Administration Site: Right AC Pharmacologic Stress Pharmacologic stress test was performed by injecting Regadenoson 0.4 mg IV push followed by the intra venous injection of 34.2 mCi of Tc-99m Sestamibi. Time of stress injection: 09:30 Date: 03/15/2025 Time of stress imagin:30 Date: 03/15/2025 Administration Route: IV Administration Site: Right AC Gated Stress SPECT was performed 60 minutes after stress injection. The images were gated to evaluate regional wall motion and calculate left ventricular ejection fracti on. Stress only was performed in the Supine position. Comments 03/14/25 -Iinjected patient with 12 mCi Tc-99m sestamibi at 13:50 HR for two day resting scan [id number] r patient could not tolerate scan due to claustrophobia. Patient rescheduled for 03/15/2025 for 1 day study. Nuclear Conclusion Nuclear Findings: negative for ischemia lvef 59% normal perfusion scan
--- NOTE | 2025-03-15 11:49 | DVHDS ---
DATE OF DISCHARGE: 03/15/2025 The patient is a 54-year-old lady who is admitted with history of palpitations and dizziness. She has history of hypertension and hyperlipidemia. HOSPITAL COURSE: The patient was noted to have SVT with a heart rate of 179. The patient was seen in Cardiology consult by Dr. Bailey. The patient had echocardiogram that is currently pending. She also is currently having a Cardiolite stress test. The patient's troponin levels are negative for acute DC. The patient will be discharged if cleared by Cardiology and after stress test results to resume her home medications except for amlodipine and will be placed on Toprol-XL 25 mg daily. She will follow up with [facility] and [facility]. FINAL DIAGNOSES: * SVT. * Questionable coronary artery disease. * Hypertension. * Hyperlipidemia. * Morbid obesity. Time spent in discharge planning and review of plan with the patient and nursing was 38 minutes. MD VIRGINIA Marinelli/MARINO TID: [id number] RECEIPT: [id number]
--- NOTE | 2025-03-15 14:43 | DVHSR ---
APPROVED REPORT EXAM: Two-dimensional and M-mode echocardiogram with Doppler and color Doppler. Blood Pressure: 125/92 mmHg INDICATION SVT RISK FACTORS Obesity: Height: 5'7", Weight: 255 DIMENSIONS LVDd4.4 (3.8-5.7cm)LA (2D)3.8 (1.9-4.0cm)Aortic Root3.4 (2.0-3.7cm) LVDs2.9 (2.5-4.0cm)LA (MM) (1.9-4.0cm)Aortic Cusp Exc1.9 (1.5-2.0cm) EF (%) 63.0 (55-70%)Rt. Atrium3.9 (1.9-4.0cm)Asc. Aorta cm IVSd1.2 (0.7-1.1cm)RV (D) (1.8-2.4cm) PWd1.4 (0.7-1.1cm) Mitral Valve MitralMitral Stenosis E wave0.78m/sMV Mean GR.mmHg A wave0.98m/sMV Peak GR.mmHg E/A ratio0.82D MVAcm2 DECEL [id number] 1/2 Timems Aortic Valve Aortic ValveAortic Stenosis V11.13m/Dora Mean GR.4mmHg V21.32m/Dora Peak GR.7mmHg LVOT Diameter2.3 (1.8-2.4cm)Doppler AVA3.55cm2 Pulmonic Valve V21.17m/s Tricuspid Valve TR Velocity2.88m/s [id number] Other Information Technically limited study due to body habitus. Conclusion Technically good study. Sinus rhythm. Normal chamber sizes. Concentric LVH. Valves are normal. Left ventricular systolic performance is preserved at 60% with normal RV function. Mild TR. No pericardial effusion masses or vegetations.
== END 2025-03-15 17:55 | disposition home or self-care (01) | DRG 309 ==
LOC: ER 06:26 → OVERFLOW 09:36 → TELE-WESTW 21:51
PROVIDERS: ADMIT Internal Medicine; ATTEND Internal Medicine
DX: I47.10 Supraventricular tachycardia, unspecified (principal); Z68.41 Body mass index [BMI] 40.0-44.9, adult; E66.01 Morbid (severe) obesity due to excess calories; E78.5 Hyperlipidemia, unspecified; I10 Essential (primary) hypertension; R73.9 Hyperglycemia, unspecified; Z79.82 Long term (current) use of aspirin; Z79.899 Other long term (current) drug therapy; Z79.84 Long term (current) use of oral hypoglycemic drugs; Z82.5 Family history of asthma and other chronic lower respiratory diseases; Z82.49 Family history of ischemic heart disease and other diseases of the circulatory system; Z82.3 Family history of stroke
CPT/HCPCS: 36415; 71045; 78452; 80048; 80053; 80061; 80320; 81001; 83036; 83735; 83880; 84443; 84484; 85025; 86803; 87340; 93005; 93017; 93306; 96374; 99291; G0378; J0153; J2470